=== PATIENT | female | born 1995 | race Caucasian/White ===

== ENCOUNTER 2018-01-12 20:33 | Inpatient (IN) | payer BC ==
[~2018-01-12] VITALS: Ht 175.3 cm; Wt 52.2 kg
[~2018-01-12 20:33] MED LIST: ABILIFY30 MG PO; DEPO-PROVE150 MG/11 IM; LEVAQUIN 500 M500 M2 PO; PAXIL10 MG PO; XANAX1 MG PO
[2018-01-12 20:39] VITALS: BP 115/79
[2018-01-12 21:08] LABS: ABSOLUTE BASOPHILS 0.1 thou/uL (0.0-0.2); ABSOLUTE EOSINOPHILS 0.1 thou/uL (0.0-0.7); ABSOLUTE LYMPHOCYTES 2.4 thou/uL (0.8-5.3); ABSOLUTE MONOCYTES 0.7 thou/uL (0.0-1.2); ABSOLUTE NEUTROPHILS 5.8 thou/uL (1.6-8.1); EOSINOPHILS 1.2 %; HEMATOCRIT 42.7 % (37.0-47.0); HEMOGLOBIN 14.5 gm/dL (12.0-15.0); LYMPHOCYTES 26.7 %; MCH 30.6 pg (26.0-34.0); MCHC 33.9 g/dL (28.0-37.0); MCV 90.1 fL (80.0-100.0); MPV 7.2 fl. (7.2-11.1); NUCLEATED RBCS 0 /100WBC; PLATELET COUNT* 268 thou/uL (150-400); POLYS 63.1 %; RBC 4.74 mil/uL (4.20-5.00); RDW-CV 13.7 % (10.5-14.5); WBC 9.2 thou/uL (4.0-11.0)
[2018-01-12 21:13] LABS: ANION GAP 5 mmol/L (7-16); BUN 13 mg/dL (7-18); CALCIUM 8.8 mg/dL (8.5-10.1); CHLORIDE 104 mmol/L (98-107); CO2 32 mmol/L (21-32); GLUCOSE 77 mg/dL (70-99); POTASSIUM 3.6 mmol/L (3.5-5.1); SODIUM 141 mmol/L (136-145)
[2018-01-12 21:20] LABS: ALBUMIN 3.5 g/dL (3.4-5.0); ALKALINE PHOSPHATASE 54 U/L (46-116); SGOT 15 U/L (15-37); SGPT 19 U/L (30-65); TOTAL BILIRUBIN 0.3 mg/dL (<0.1-1.0); TOTAL PROTEIN 7.3 g/dL (6.4-8.2); TROPONIN-I LEVEL <0.06 ng/mL (<0.06)
[2018-01-12 21:23] LABS: ACETAMINOPHEN < 2 ug/mL (10-30); ALCOHOL < 10 mg/dL (<10); SALICYLATE < 2.8 mg/dL (2.8-20.0)
[2018-01-12 21:51] LABS: URINE BILIRUBIN NEGATIVE (Negative); URINE BLOOD NEGATIVE (Negative); URINE CLARITY CLEAR; URINE COLOR YELLOW; URINE GLUCOSE-RANDOM NEGATIVE (Negative); URINE KETONES NEGATIVE (Negative); URINE LEUKOCYTES-REFLEX TRACE (Negative); URINE NITRITE-REFLEX NEGATIVE (Negative); URINE PROTEIN NEGATIVE (Negative); URINE UROBILINOGEN 0.2 E.U./dl (0.2-1.0)
[2018-01-12 22:01] LABS: SQUAMOUS 0-3 Few /LPF (0-3); URINE WBC-REFLEX >25 Many /HPF (0-5); WBC CLUMPS Few (None Seen)
[2018-01-12 22:02] LABS: AMP/METHAMP POSITIVE (Negative); BACTERIA-REFLEX >30 Many /HPF (None Seen); BARBITURATES Negative (Negative); BENZODIAZEPINES Negative (Negative); COCAINE Negative (Negative); METHADONE Negative (Negative); MUCUS 4-6 Moderate strn/LPF (None Seen); OPIATES Negative (Negative); PCP Negative (Negative); THC POSITIVE (Negative); URINE RBC None Seen /HPF (0-2)
[2018-01-12 22:03] LABS: CASTS None Seen /LPF (None Seen); CRYSTALS None Seen /LPF (None Seen)
[2018-01-12 22:22] LABS: BE 1.4 mmol/L (-2 to +3); HCO3 26.3 mmol/L (22.0-26.0); PCO2 42.6 mmHg (35.0-45.0); PO2 109.2 mmHg (75.0-100.0); pH 7.408 (7.340-7.450)
[2018-01-12 23:14] VITALS: BP 109/75
[2018-01-13] VITALS (15 sets, daily range): BP systolic 97–121; BP diastolic 61–83
[2018-01-13 04:00] LABS: HEMATOCRIT 39.5 % (37.0-47.0); HEMOGLOBIN 13.3 gm/dL (12.0-15.0); MCH 30.5 pg (26.0-34.0); MCHC 33.7 g/dL (28.0-37.0); MCV 90.4 fL (80.0-100.0); MPV 7.2 fl. (7.2-11.1); RBC 4.37 mil/uL (4.20-5.00); RDW-CV 13.5 % (10.5-14.5); WBC 9.1 thou/uL (4.0-11.0)
[2018-01-13 05:41] LABS: ALBUMIN 3.1 g/dL (3.4-5.0); CALCIUM 8.2 mg/dL (8.5-10.1); CREATININE 0.7 mg/dL (0.6-1.3); TOTAL BILIRUBIN 0.3 mg/dL (<0.1-1.0); TOTAL PROTEIN 6.2 g/dL (6.4-8.2)
--- NOTE | 2018-01-13 06:23 | NUR ---
PT ARRIVED FROM ED AT 2345. PT SLEEPING, WHEN ASKED QUESTIONS, PT BECOMES AGITATED. PT UNABLE TO ANSWERING ADMITTING QUESTIONS. MOTHER NOT AT BEDSIDE
--- NOTE | 2018-01-13 11:31 | NUR ---
Nutrition: Pt assessed for low BMI, 16.3. Pt lost ~15# over last year. Wt has been around 100-110# now. H/o illicit drug use. Per ICU rounds, recently lost her job and OD on pills. Diet will advance when pt is less lseepy. Pt usually eats well. Please advance to Regular diet. Otherwise, mild nutrition risk at this time. No nutrition interventions needed at this time. Recommend MVI use at home.
--- NOTE | 2018-01-13 17:03 | EKG ---
[place] [address] ELECTROCARDIOGRAM REPORT Name: BRENT BLANCO Room: [address] ADM IN M.R.#: [id number] Admission: 01/12/18 Attend Phys: Vladimir Iraheta MD Discharge: Date of : 89 Report #: [id number] THIS REPORT FOR: //name// [facility] ED Test Date: 2018-01-12 Test Time: 21:24:38 Pat Name: BRENT BLANCO Department: Room: [facility] Gender: F Tool Drawing Checker: MIROSLAVA Beltran : 1995 Requested By: Violeta Vega Order Number: [id number] MD: Abilio Delgadillo Measurements Intervals [place] Rate: 102 P: 60 DE: 140 QRS: 95 QRSD: 102 T: 61 QT: 359 QTc: 468 Interpretive Statements Sinus tachycardia Probable left atrial enlargement Consider RVH w/ secondary repol abnormality Baseline wander in lead(s) I,aVL Compared to ECG 10/02/2017 17:20:06 No significant changes Electronically Signed On 01-13-2018 17:03:21 TOOLING ENGINEER by Abilio Delgadillo [email or web address] <ELECTRONICALLY SIGNED> By: Abilio Delgadillo MD, [facility] 01/13/18 1703 23 23 Abilio Delgadillo MD, [facility] /EPI
[2018-01-14] VITALS (10 sets, daily range): BP systolic 108–123; BP diastolic 73–87
[2018-01-14 03:10] LABS: ABSOLUTE EOSINOPHILS 0.1 thou/uL (0.0-0.7); ABSOLUTE LYMPHOCYTES 1.9 thou/uL (0.8-5.3); ABSOLUTE MONOCYTES 0.5 thou/uL (0.0-1.2); ABSOLUTE NEUTROPHILS 4.5 thou/uL (1.6-8.1); BASOPHILS 0.5 %; EOSINOPHILS 0.8 %; HEMATOCRIT 38.8 % (37.0-47.0); LYMPHOCYTES 27.6 %; MCH 30.2 pg (26.0-34.0); MCHC 33.6 g/dL (28.0-37.0); MCV 90.1 fL (80.0-100.0); MPV 7.3 fl. (7.2-11.1); NUCLEATED RBCS 0 /100WBC; PLATELET COUNT* 228 thou/uL (150-400); POLYS 64.1 %; RBC 4.31 mil/uL (4.20-5.00)
[2018-01-14 03:33] LABS: CALCIUM 8.2 mg/dL (8.5-10.1); CREATININE 0.8 mg/dL (0.6-1.3); POTASSIUM 3.8 mmol/L (3.5-5.1)
--- NOTE | 2018-01-14 06:47 | NUR ---
PT. PROGRESSING TOWARDS GOALS, HAS BEEN DROWSY, SLEEPING MAJORITY OF SHIFT. INCONTINENT OF URINE X4. CONTINENT AND UP TO BEDSIDE COMMODE THIS A.M. SAFETY MAINTAINED, WILL CONTINUE TO MONITOR.
--- NOTE | 2018-01-14 15:00 | NUR ---
PATIENT PROGRESSING TOWARDS GOALS. 1:1 SITTER WITH PATIENT AT ALL TIMES. VSS THROUGHOUT SHIFT. HR ELEVATED AND INCREASES UP TO 130'S WHEN SHE IS UP. NO COMPLAINTS OF PAIN. PT RESTED MOST OF THE DAY BUT WAS AROUSABLE WHEN ASSESSED. POISON CONTROL CALLED AND SIGNED OFF THIS EVENING, PT PROGRESSING WELL. PT ATE BREAKFAST AND LUNCH WITHOUT DIFFICULTY. NO OTHER COMPLAINTS.
--- NOTE | 2018-01-14 17:04 | NUR ---
PT REPORT GIVEN TO TELEMETRY NURSE. PATIENT TRANSFERED BY WHEELCHAIR TO ROOM 214. 1:1 SITTER WITH PATIENT.
[2018-01-15] VITALS (8 sets, daily range): BP systolic 107–120; BP diastolic 71–82
--- NOTE | 2018-01-15 03:36 | NUR ---
PT DROWSEY, AROUSABLE, CALM. 1:1 SITTER IN ROOM WITH PT. SUICIDAL PRECAUTIONS OBSERVED. TELEMETRY SHOWS SR. NS AT 80MLS/HR. WILL CONTINUE TO MONITOR.
[2018-01-15 05:23] LABS: ABSOLUTE EOSINOPHILS 0.1 thou/uL (0.0-0.7); ABSOLUTE LYMPHOCYTES 2.5 thou/uL (0.8-5.3); ABSOLUTE MONOCYTES 0.4 thou/uL (0.0-1.2); ABSOLUTE NEUTROPHILS 2.2 thou/uL (1.6-8.1); BASOPHILS 0.7 %; EOSINOPHILS 2.7 %; HEMATOCRIT 38.5 % (37.0-47.0); HEMOGLOBIN 13.1 gm/dL (12.0-15.0); LYMPHOCYTES 46.9 %; MCH 30.2 pg (26.0-34.0); MCV 88.6 fL (80.0-100.0); MONOCYTES 7.8 %; MPV 7.3 fl. (7.2-11.1); NUCLEATED RBCS 0 /100WBC; PLATELET COUNT* 231 thou/uL (150-400); POLYS 41.9 %; RBC 4.34 mil/uL (4.20-5.00); WBC 5.3 thou/uL (4.0-11.0)
[2018-01-15 05:29] LABS: ALBUMIN 2.8 g/dL (3.4-5.0); CALCIUM 8.2 mg/dL (8.5-10.1); CREATININE 0.8 mg/dL (0.6-1.3); POTASSIUM 3.9 mmol/L (3.5-5.1); TOTAL BILIRUBIN 0.2 mg/dL (<0.1-1.0); TOTAL PROTEIN 6.2 g/dL (6.4-8.2)
--- NOTE | 2018-01-15 10:46 | NUR ---
CM ASSESSMENT: Pt is A&O. Resides at home with family. Known to this CM from previous hospital stay. Pt admitted for SI. Hx of SI attempt. Hx of inpt psych. Pt has a sitter at bedside. Anticipate that Pt will need inpt psych again. No DME. No hx of HH or SNF. Following for disposition.
[2018-01-15] MEDS ORDERED: PROTONIX40 M1 PO (16:15)
[2018-01-15] MEDS ORDERED: TYLENOL325 MG PO (16:15)
--- NOTE | 2018-01-15 18:47 | NUR ---
NO C/O FROM PT TODAY. CONTINUES SI 1:1
--- NOTE | 2018-01-15 18:57 | NUR ---
SPOKE WITH SARA AT [facility], NEEDS UPDATED INFORMATION REGARDING PROGRESS NOTES AND LABS. REQUESTED INFORMATION SENT TO FAX NUMBER [phone]
--- NOTE | 2018-01-16 03:25 | NUR ---
ASSUMED CARE AT 1930, BEDSIDE REPORT RECEIVED FROM JACQUELINE CANALES. ASSESSMENT CHARTED. PATIENT ALERT/ORIENTED X4, RESTING IN BED WITH 1:1 SITTER AT SIDE. FLAT AFFECT NOTED. ON TELE, SR. ON ROOM AIR, NO SOB NOTED, SATS 98%. SL INTACT TO LEFT FOREARM, FLUSHES WELL. DR. JOSE NOTIFIED REGARDING GETTING HER IVF DISCONTINUED, ORDERS RECEIVED AND NOTED. UP AD MARCIE IN ROOM. DENIES PAIN OR NEEDS. REFUSING SCD'S. MEDS PER JAN. FAMILY AT SIDE, SCRUBBED AND BELONGINGS PLACED IN LOCKBOX AT DESK. SARA FROM [facility] CALLED AND SPOKE WITH PATIENT AND THEN SPOKE WITH STAFF. SARA STATES THAT AFFADAVITS IN [facility] AREN'T CURRENT ANYMORE AND WOULD NEED A CURRENT WRITTEN AFFADAVIT FROM STAFF IN ORDER TO TRANSFER PATIENT TO [facility] AND STATES THAT A BED IS AVAILABLE. PATIENT DENIES SI AT THIS TIME, THIS NURSE UNABLE TO WRITE A CURRENT AFFADAVIT. BAGGAGE PORTER AND SARA NOTIFIED OF THIS. 1:1 REMAINS AT SIDE. CALL LIGHT WITHIN REACH, ENCOURAGED TO CALL FOR NEEDS.
[2018-01-16 03:47] VITALS: BP 101/70
--- NOTE | 2018-01-16 07:53 | NUR ---
DR. LE UPDATED ON SITUATION REGARDING TRANSFER, STATES TO HAVE CASE MANAGEMENT FOLLOW UP. REPORT GIVEN TO ONCOMING NURSE. WILL MONITOR.
--- NOTE | 2018-01-16 11:49 | NUR ---
Per nurse's note, [facility] requesting an updated affadivit, Dr Raya completed and CM faxed to [facility], called an informed intake of the fax. CM contacted [facility] they are unable to accept Pt. Anticipate dc to [facility] today. CM following.
[2018-01-16 12:08] VITALS: BP 112/78
[2018-01-16 15:44] VITALS: BP 105/77
--- NOTE | 2018-01-16 16:03 | NUR ---
Pt discharging to [facility] today under the care of Dr Malcolm. Pt to admit to intake. Nurse report number is [phone]. Updated nurse. EMTALA form completed, copy to be sent with Pt. Ambulance to transport and excelsior picker at 430pm. Updatd Pt's mom of disposition.
--- NOTE | 2018-01-16 16:33 | NUR ---
ASSUMED CARE OF PT AT 0730. PT CONTINUED TO BE A&O X4 CALM AND COOPERATIVE FOR MOST OF THE SHIFT. PT DID HAVE TWO INSTANCES WHERE SHE BECAME TEARFUL AND WAS YELLING OUT BUT THIS NURSE WAS ABLE TO REDIRECT HER. PT WAS DISCHARGED TO [facility] FOR INPATIENT TREATMENT. REPORT CALLED TO DARCI PHILLIPS/CNO. PT VERBALIED UNDERSTANDING OF DC INSTRUCTIONS. IV AND OFFAL WORKER REMOVED PRIOR TO DISCHARGE.
== END 2018-01-16 16:35 | DRG 917 ==
LOC: M.ERS 20:33 → M.TBA-ER 21:04 → M.ICU 21:04 → M.2W 21:04 → M.ICU 22:04 → M.TBA-ER 01-13 09:50 → M.2W 01-14 17:07
PROVIDERS: Emergency Medicine; Internal Medicine; ADMIT Internal Medicine
DX: T50.902A Poisoning by unspecified drugs, medicaments and biological substances, intentional self-harm, initial encounter (principal); G93.40 Encephalopathy, unspecified; N39.0 Urinary tract infection, site not specified; R65.10 Systemic inflammatory response syndrome (SIRS) of non-infectious origin without acute organ dysfunction; F32.9 Major depressive disorder, single episode, unspecified; F41.9 Anxiety disorder, unspecified; F42.9 Obsessive-compulsive disorder, unspecified; F17.210 Nicotine dependence, cigarettes, uncomplicated; F19.90 Other psychoactive substance use, unspecified, uncomplicated; Z79.899 Other long term (current) drug therapy; Z90.49 Acquired absence of other specified parts of digestive tract; Z88.1 Allergy status to other antibiotic agents; Z88.0 Allergy status to penicillin; Y92.89 Other specified places as the place of occurrence of the external cause